=== PATIENT | female | born 1945 | race Caucasian/White ===

== ENCOUNTER 2016-09-12 12:40 | Observation (INO) | payer MEDICARE ==
[2016-09-12] VITALS (7 sets, daily range): BP systolic 147–183; BP diastolic 78–96; PULSE 68–84; RESP 13–20; O2SAT 95–100
[~2016-09-12] VITALS: Ht 149.9 cm; Wt 54.4 kg
[~2016-09-12 12:40] MED LIST: ACET-171 PO; AMIT10TA6 PO; ASPI-628 PO; BENEDRYL PO; CALC300T4 PO; CALC625T15 PO; CHOL2000 PO; COLE1TAB2 PO; ESTR0.5T PO; GABA600T2 PO; GEMF600T3 PO; HYDR-4003 PO; IMMODIUM A-D PO; LEVO100T6 PO; LORA10TA7 PO; MAGN250T29 PO; MULT-1073 PO; NAPR220C11 PO; OMEG1CAP5 PO; OMEP20CA11 PO; PSYL0.5211 PO; TRAZ-115 PO
[2016-09-12] MEDS ORDERED: 0.9% Sodium Chloride 1,000 ML IV ONE (13:00)
--- NOTE | 2016-09-12 13:19 | DRSVH ---
PROCEDURE: CT BRAIN (TPA) ([id number]) INDICATIONS: Stroke TECHNIQUE: Noncontrast 4.5 mm thick angled axial sections acquired from the foramen magnum to the vertex, with c oronal reformats. COMPARISON: None. FINDINGS: Image quality: Excellent. CSF spaces: Basal cisterns are patent. No extra-axial fluid collections. Ventricles are normal in size and shape. Brain: No midline shift. No intracranial masses or hemorrhage. Birch-white matter interface is norm al. Skull and face: Calvarium and visualized facial bones are intact, without suspicious lesions. Sinuses: Visualized sinuses and mastoids are clear. IMPRESSION: Mild microvascular atherosclerotic change, no contraindication to TPA administration is f ound. Findings called immediately to the ordering health care provider at 13:14 in the afternoon of 09/12/16 . This study fulfills neurological imaging criteria for inclusion or exclusion of acute stroke therapie s based on available published neurological imaging guidelines. Dictated by: Adams Maxwell M.D. on 09/12/2016 at 13:16 Approved by: Adams Maxwell M.D. on 09/12/2016 at 13:17
--- NOTE | 2016-09-12 13:30 | ED.REPORT ---
HPI-Neurologic Deficit Date of Service September 12, 2016 ED Provider: Matty Lisa DO Patient is a 71 year old female with a history of hypertension and hypothyroidism who presents to the ED complaining of left facial neck numbness that radiates into the left side of her neck and shoulder. The patient reports that she has had intermittent tingling of her neck and face for the past 4 days and felt normal this morning before 1000. She called [facility] to schedule an appointment for this and began developing numbness in her face, neck and arm around 1015 and the nurse advised her to come to the ED. Once the patient arrived to the ED, she was triaged and had normal speech and walk. Around 1227 the nurse noticed the patient was unbalanced, was having difficulty walking and her speech was slurred. The patient also complained of a headache during this time. Upon examination at 1229 the patient reported that the numbness was improving and she no longer had slurred speech per her . Nursing Notes Stated Complaint: LEFT SIDE FACIAL NUMBNESS Chief Complaint: Neuro Symptoms/ Deficits Nursing Notes Reviewed: Yes Allergies: Coded Allergies: Aminoglycosides (Verified Allergy, Severe, Skin Rash, 09/12/16) Fenoprofen Calcium (Verified Allergy, Severe, Skin Rash, 09/12/16) Penicillins (Verified Allergy, Severe, Skin Rash, 09/12/16) RECEIVED CEFAZOLIN 2010 Pentazocine Lactate (Verified Allergy, Severe, SKIN RASH, 09/12/16) Sulfa (Sulfonamide Antibiotics) (Verified Allergy, Severe, SKIN RASH, 09/12) fenoprofen (Verified Allergy, Severe, Skin Rash, 09/12/16) hydromorphone (Verified Allergy, Severe, hallucinations, 09/12/16) sees crawling worm-like things all over [place] & bed & 3' deep on floors latex (Verified Allergy, Severe, RASH, 09/12/16) thimerosal (Verified Allergy, Severe, RASH, 09/12/16) neomycin (Verified Allergy, Unknown, UNKNOWN, 09/12/16) pramipexole (Unverified Adverse Reaction, Severe, ITCHING, 09/12/16) ropinirole (Unverified Adverse Reaction, Severe, ITCHING, 09/12/16) Uncoded Allergies: Nickel Sulfate (Allergy, Severe, Skin Rash, 05/22/12) Scheduled ([Benedryl]) 25 MG PO BID Amitriptyline (Amitriptyline) 10 Mg Tablet 10 MG PO HS Aspirin (Aspir 81) 81 Mg Tablet.dr 81 MG PO DAILY Calcium Polycarbophil (Fiber) 625 Mg Tablet 625 MG PO DAILY Cholecalciferol (Vitamin D3) (Vitamin D) 2,000 Unit Capsule 2,000 UNIT PO DAILY Colestipol (Colestipol) 1 Gm Tablet 2-3 GM PO DAILY Estradiol (Estradiol) 0.5 Mg Tablet 0.125 MG PO DAILY Gabapentin (Gabapentin) 600 Mg Tablet 600 MG PO TID TAKES 600MG IN AM; 900MG @ 1700 & 900MG @ 2300 Gemfibrozil (Gemfibrozil) 600 Mg Tablet 600 MG PO BID Levothyroxine (Levothyroxine) 100 Mcg Tablet 100 MCG PO DAILY Loratadine (Loratadine) 10 Mg Tablet 10 MG PO DAILY Magnesium Oxide (Magnesium) 250 Mg Tablet 250 MG PO DAILY Multivits-Min/FA/Lycopene/Lut (Centrum Silver Tablet) 1 Each Tablet 1 EACH PO DAILY Lapel-3 Fatty Acids/Fish Oil (Fish Oil 1,000 mg Capsule) 1 Each Capsule 1 EACH PO DAILY Omeprazole (Omeprazole) 20 Mg Capsule.dr 20 MG PO DAILY Psyllium Husk (Metamucil) 0.52 Gm Capsule 0.52 GM PO DAILY Trazodone (Trazodone) 50 Mg Tablet 25-100 MG PO HS Scheduled PRN ([Immodium A-D]) 2 TAB PO PRN PRN PRN For Diarrhea or Loose Stool Acetaminophen (Acetaminophen) 500 Mg Tablet 1,000 MG PO Q6H PRN PRN PRN Calcium Carbonate (Tums) 300 Mg Tab.chew 300 MG PO PRN PRN PRN For Dyspepsia or Heartburn Hydrocodone-Acetaminophen 5-325 mg (Hydrocodone-Acetaminophen 5-325 mg) 1 Each Tablet 1 EACH PO HS PRN PRN RLS Naproxen Sodium (Aleve) 220 Mg Capsule 220 MG PO Q12H PRN PRN PRN General Time Seen by Provider: 12:29 Chief Complaint Numbness arm... (Left) Hx Obtained From: Patient Arrived By: Walk-in Sudden in Onset?: Yes Onset Occurred: 1 - 15 minutes ago Progression Since Onset: Rapidly improving Location: : Arm left: Neck Associated with: Reports: Altered sensation Recent Healthcare: No recent hospitalization, Recent doctor visit Similar Sx Previous: Yes Risk Factors NIH Stroke Scale Level of Consciousness: Alert and responsive (0) Ask Month & Age: Both questions right (0) Open/Close Eyes/Hand Senior Market Intelligence Consultant: Performs both tasks (0) Horizontal EO Movements: None (0) Visual Lo: No visual loss (0) Facial Palsy: Normal symmetry (0) Right Arm Motor Drift (10s): No drift 10 sec (0) Left Arm Motor Drift (10s): No drift 10 sec (0) Right Leg Motor Drift (5s): No drift 5 sec (0) Left Leg Motor Drift (5s): No drift 5 sec (0) Limb Ataxia FNF/Heel-Long: No ataxia (0) Sensation (Arms/Legs/Face): Pinprick less sharp (1) Language Aphasia: No aphasia, normal (0) Dysarthria: No dysarthria, normal (0) Extinction/Inattention: No exctinct/inattent (0) NIHSS Score: 1 Time NIHSS Performed: 13:28 Date NIHSS Performed: September 12, 2016 Past Medical History Past Medical History hypothyroidism Reports: Hypertension Smoking History Former Smoker Social History Other Social History: Good social support, Lives alone, Local resident Ambulatory Status Independent Review of Systems Respiratory: Denies: Non-productive cough, Shortness of breath Neurologic: Reports: Focal weakness, Headache, Numbness, Problem walking, Slurred speech Complete sys rev & neg: except as marked. Physical Exam Initial Vital Signs Vital Signs (First) Date Time Temp Pulse Resp B/P Pulse Ox O2 Delivery O2 Flow Rate FiO2 09/12/16 12:43 35.7 72 18 96 Room Air 09/12/16 14:25 151/93 Initial VS: Reviewed General/Constitutional: Awake, Alert Head / Eyes: Atraumatic, Normocephalic, PERRL, EOMI Respiratory / Chest: Atraumatic, Breath sounds NL, Breath sounds = bilat, No respiratory distress Cardiovascular: Heart rate NL, Regular rhythm, Heart sounds NL Neurologic: Oriented X3, Speech NL, No motor deficits, No sensory deficits parathesia of the left arm and face Upper Extremity / MS: Atraumatic, Full range of motion Lower Extremity / Pelvis / MS: Atraumatic, Full range of motion Skin: Atraumatic, Color NL, No rash, Warm, Dry Psychiatric: Affect NL, Mood NL Interpretation & Diagnostics Lab Results Interpretation Result Diagram: 09/12/16 1325 09/12/16 1325 Test 09/12/16 13:25 09/12/16 14:58 White Blood Count 8.3th/mm3 (3.8-10.1) Red Blood Count 4.80mil/mm3 (3.90-5.20) Hemoglobin 14.8g/dL (12.0-15.6) Hematocrit 43.0% (35.0-46.0) Mean Corpuscular Volume 89.6fL (81-100) Mean Corpuscular Hemoglobin 30.8pg (27.0-35.0) Mean Corpuscular Hemoglobin Concent 34.4% (32.0-37.0) Red Cell Distribution Width 12.5% (12.3-15.4) Platelet Count 328bil/L (150-400) Neutrophils (%) (Auto) 48.0% (40-74) Lymphocytes (%) (Auto) 25.1% (14-46) Monocytes (%) (Auto) 9.8% (4-12) Eosinophils (%) (Auto) 15.9% (0-5) Basophils (%) (Auto) 1.1% (0-3) Prothrombin Time 10.2sec (8.1-12.5) Prothromb Time International Ratio 0.95ratio Activated Partial Thromboplast Time 28.2sec (22.8-33.0) Sodium Level 138mEq/L (134-144) Potassium Level 4.7mEq/L (3.5-5.2) Chloride Level 102mEq/L (97-108) Carbon Dioxide Level 20mmol/L (18-29) Blood Urea Nitrogen 16mg/dL (8-27) Creatinine 0.70mg/dL (0.57-1.00) Estimat Glomerular Filtration Rate 118mL/min (>59) Glucose Level 101mg/dL (60-99) Calcium Level 10.5mg/dL (8.5-10.1) Total Bilirubin 0.4mg/dL (0.0-1.2) Aspartate Amino Transf (AST/SGOT) 25U/L (0-50) Alanine Aminotransferase (ALT/SGPT) 8U/L (0-32) Alkaline Phosphatase 63U/L (25-165) Troponin T < 0.010ug/L (0.0-0.011) Total Protein 7.3g/dL (6.4-8.4) Albumin 4.5g/dL (3.4-5.0) Hold Clark Top Tube Received (Received) Urine Color Straw (YELLOW) Urine Appearance Clear (CLEAR,HAZY) Urine pH 5.0 (5.0-8.0) Urine Specific Orwell 1.005 (1.003-1.035) Urine Protein Negativemg/dL (NEG,TRACE) Urine Glucose (UA) Negativemg/dL (NEGATIVE) Urine Ketones Negativemg/dL (NEGATIVE) Urine Occult Blood Negative (NEGATIVE) Urine Nitrite Negative (NEGATIVE) Urine Bilirubin Negative (NEGATIVE) Urine Urobilinogen Normalmg/dL (NORMAL) Urine Leukocyte Esterase Negative (NEGATIVE) Urine RBC 0-2/hpf (0-2) Urine WBC 0-5/hpf (0-5) Urine Epithelial Cells Few/hpf (NONE-MOD) Urine Crystals None seen (NONE SEEN) Urine Bacteria Few/hpf (NONE-FEW) Urine Hyaline Casts None/lpf (NONE) Urine Granular Casts None seen (NONE SEEN) Urine Waxy Casts None seen (NONE SEEN) Urine Red Blood Cell Casts None seen (NONE SEEN) Urine White Blood Cell Casts None seen (NONE SEEN) Urine Mucus None seen (None Seen) Urine Trichomonas None seen (NONE SEEN) Urine Yeast None (NONE SEEN) Urinalysis Comment None Urine Culture Reflexed Not indicated ECG Interpretation Time: 12:29 Interpreted by: ED physician Normal ECG Interpretation: Normal rate (72), Normal sinus rhythm X-Ray Chest Interpretation Chest Xray Interpretation: IMPRESSION: 1. No acute cardiopulmonary disease. Dictated by: Román Evans M.D. on 09/12/2016 at 13:40 Approved by: Román Evans M.D. on 09/12/2016 at 13:41 View: Portable, 1 view Interpretation / Wet Read by: Interpret - Radiologist CT Head Interpretation IMPRESSION: Mild microvascular atherosclerotic change, no contraindication to TPA administration is found. Findings called immediately to the ordering health care provider at 13:14 in the afternoon of 09/12/16. This study fulfills neurological imaging criteria for inclusion or exclusion of acute stroke therapies based on available published neurological imaging guidelines. Dictated by: Adams Maxwell M.D. on 09/12/2016 at 13:16 Approved by: Adams Maxwell M.D. on 09/12/2016 at 13:17 Interpretation / Wet Read by: Interpret - Radiologist Re-Eval/Medical Decision Med Decision/Clinical Course Patient was called as a code stroke after her symptoms progressed to difficulty walking, slurred speech, facial droop this occurred after the patient had been triage and was being walked back to a medical room. She was immediately brought to the major medical room after the code stroke was called at bedside assessment was performed, last known normal was assessed. The patient was sent emergently for noncontrast head CT, EKG and laboratory studies were obtained. There was no obvious contraindication to TPA however after return from CT her NIH stroke scale is 1. The case was discussed with pseudo-stroke neurology who recommended not giving TPA however did recommend a CT and she will head and neck. There is no high-grade occlusion on the angiography. Ultimately the patient will be admitted for third further stroke evaluation. Re-Evaluation/Progress : Time of Eval: 14:25 Re-Evaluation/Progress Note: Discussed results and plan for admit. The patient understands and agrees to the plan for admit. All questions were addressed. Consultation : Call Returned at: 13:25 Auto Brake Technician: Agrees with eval, Agrees with plan Note: Consult with Dr. Don, from [facility], who does not recommends TPA at this time but recommends she get a CTA. Counseled Regarding: Diagnosis, Lab results, Need for admission Discharge & Departure Impression: Primary Impression: Stroke CVA mechanism: unspecified Qualified Code: I63.9 - Cerebral infarction, unspecified Disposition: ADMITTED TO HOSPITAL Discharge Condition All VS Reviewed: Yes Condition: Stable Referrals: Zach Meyer MD (PCP) Crit Care Except Billable Proc Time Spent: 30-74 minutes Services Performed: Patient management by me, Time spent at bedside, Reviewing test results, Reviewing imaging, Discussing patient care, Documentation in record, Time with fam/surrogate Critical Care Notes: See MDM Zoey Attestation Portions of this note were transcribed by Shreya Sullivan. I, Dr. Jennifer Pelletier personally performed the history, physical exam and medical decision-making; I reviewed and confirmed the accuracy of the information in the transcribed note. Signed by: Zoey Mena, 09/12/16 and 1500 copies to: Zach Meyer MD, Timothy S DO September 12, 2016 13:30 Farideh Sullivan September 12, 2016 13:39
[2016-09-12 13:34] LABS: BASOPHILS % (AUTO) 1.1 % (0-3); EOSINOPHILS % (AUTO) 15.9 % (0-5); MONOCYTES % (AUTO) 9.8 % (4-12); Mean Corpuscular Hemoglobin 30.8 pg (27.0-35.0); Mean Corpuscular Volume 89.6 fL (81-100); Platelet Count 328 bil/L (150-400)
--- NOTE | 2016-09-12 13:43 | DRSVH ---
PROCEDURE: X-RAY CHEST ONE VIEW, PORTABLE ([id number]) INDICATIONS: left sided numbness TECHNIQUE: One view of the chest was acquired. COMPARISON: [facility], , CHEST 1VW (PORTABLE), 05/31/2012, 15:20. FINDINGS: Surgical changes and devices: There are postsurgical changes partially visualized in the lower cervic al and lumbar spine. Lungs and pleura: No pleural effusions or pneumothorax. Lungs are clear. Mediastinum: Mediastinal contours appear normal. Heart size is normal. Bones and chest wall: No suspicious bony lesions. Overlying soft tissues appear unremarkable. IMPRESSION: 1. No acute cardiopulmonary disease. Dictated by: Román Evans M.D. on 09/12/2016 at 13:40 Approved by: Román Evans M.D. on 09/12/2016 at 13:41
[2016-09-12 13:58] LABS: INR 0.95 ratio
[2016-09-12 14:10] LABS: TROPONIN T < 0.010 ug/L (0.0-0.011)
--- NOTE | 2016-09-12 14:22 | NUR ---
Evaluation completed. Please go to "Notes" then click on "Assessments and Notes" (bottom left corner of screen). Then select appropriate discipline tab on top of screen.
[2016-09-12 15:34] LABS: APPEARANCE,URINE CLEAR (CLEAR,HAZY); COLOR,URINE STRAW (YELLOW); OCCULT BLOOD,URINE NEGATIVE (NEGATIVE); UROBILINOGEN,URINE NORMAL (NORMAL)
--- NOTE | 2016-09-12 15:47 | DRSVH ---
PROCEDURE: CT ANGIO BRAIN NECK TPA INDICATIONS: STAT READ - CALL ED PROVIDER W/RESULTS TECHNIQUE: Pre-contrast 4.5 mm thick sections acquired from the foramen magnum to the vertex. After the adminis tration of intravenous contrast, 1 mm thick sections acquired from the aortic arch through the [place]. Post-contrast 4.5 mm thick sections then re-acquired from the foramen magnum to the vert ex. 3-dimensional mhwbczc-iobpsotyz-qgiyidtefg (MIP) and/or volume rendering reformats were acquired of the central intracranial vasculature and neck separately. For radiation dose reduction, the foll owing was used: automated exposure control, adjustment of mA and/or kV according to patient size. COMPARISON: [facility], CT, BRAIN (TPA), 09/12/2016, 13:07. FINDINGS: Image quality: Excellent. BRAIN: CSF spaces: Ventricles are normal in size and shape. Basal cisterns are patent. No extra-axial flu id collections. Brain: No midline shift. No intracranial bleeds or masses. Birch-white matter interface appears int act. Skull and face: Calvarium and facial bones appear intact, without suspicious lesions. Orbits appear normal. Sinuses: Sinuses and mastoids are clear. HEAD CT ANGIOGRAPHY: Anterior circulation: Intracranial internal carotid arteries are normal in flow. Atherosclerotic hellen cifications noted in the cavernous and supraclinoid segments of the internal carotid arteries bilater ally. Atherosclerotic disease causes moderate stenosis of the supraclinoid segment of the right inter nal carotid artery, mild stenosis of the cavernous segment of the right internal carotid artery and m ild stenosis of the cavernous segment of the left internal carotid artery.. The flow within the paire d anterior cerebral arteries is normal and symmetric. The flow within the middle cerebral arteries i s normal and symmetric. The anterior communicating artery is seen. No aneurysms are seen. Posterior circulation: Visualized portions of the vertebral arteries demonstrate normal caliber, and join to form a normal appearing basilar artery. Flow within the posterior cerebral arteries is norm al and symmetric. No aneurysms are seen. NECK CT ANGIOGRAPHY: Carotid system: The great vessels demonstrate a conventional anatomy as they arise from the aortic a [facility]. Atherosclerotic calcifications noted in the aortic arch and the origins of the great vessels. T he origins of the common carotid arteries appear patent. The common carotid arteries demonstrate nor mal caliber and courses. Atherosclerotic calcifications noted in the origins of the internal carotid arteries bilaterally. Atherosclerotic disease causes approximately 60-70% stenosis of the origin of t he right internal carotid artery. A dystrophic calcification causing approximately 70-80% stenosis of the origin of the left internal carotid artery. Posterior circulation: The origins of the vertebral arteries both appear widely patent. The more [place] perior extracranial portions of both vertebral arteries also demonstrate normal courses and calibers. They join to form a normal appearing basilar artery. Soft tissues: Visualized neck soft tissues demonstrate no suspicious abnormalities. Bones: Spine degenerative disc disease and facet arthropathy. Postsurgical changes compatible with s evere C4-C7 ACDF noted. No suspicious bony lesions. Visualized cervical spine appears normally align ed. IMPRESSION: 1. No evidence of large vessel occlusion. 2. Moderate stenosis involving the supraclinoid segment of the intracranial right internal carotid ar papa. Mild stenosis involving the cavernous segments of the intracranial internal carotid arteries bi laterally. 3. 60-70% stenosis of the origin of the right internal carotid artery. 4. 70-80% stenosis of the origin the left internal carotid artery. 5. Vertebral arteries appear fully patent. 6. Postsurgical changes compatible C4-C7 ACDF. 7. Findings telephoned to Dr. Matty Lisa on 09/12/2016 at 1541 hrs. Dictated by: Paulette Melendez MD, PhD on 09/12/2016 at 15:31 Approved by: Paulette Melendez MD, PhD on 09/12/2016 at 15:46
[2016-09-12] MEDS ORDERED: Alum-Mag Hydrox-Simeth 30 mL Suspension PO PRN ×2 (15:55→17:10)
[2016-09-12] MEDS ORDERED: Ondansetron 2 mg/mL 2 mL Inj IVPUSH PRN ×2 (15:55→17:10)
[2016-09-12] MEDS ORDERED: LEVO88TA4 PO (16:38)
[2016-09-12] MEDS ORDERED: DORZ10DR20 BOTH_EYES (16:38)
[2016-09-12] MEDS ORDERED: LATA2.5D6 BOTH_EYES (16:38)
[2016-09-12] MEDS ORDERED: Polyethylene Glycol (PEG) 17 Gm Powder PO PRN (17:10)
--- NOTE | 2016-09-12 17:50 | PCM.HPMED ---
Subjective Date of Service September 12, 2016 Primary Provider: Admitting Physician: Guy Hawk Primary Care Physician: Zach Meyer MD Attending Physician: Guy Hawk Chief Complaint: left facial numbness History of Present Illness: 71 year old female with history of hypercholesterolemia and distant history of smoking presents with about 4-5 days of intermittent tingling on the left side of her neck and radiating down her left shoulder. She called her PCP's office today and as she was talking to the nurse on the phone she felt numbness on the lower left side of her face and around her lip and tongue. She was instructed to come to the ED. In the ED while going to the bathroom the nursing felt that patient's speech might be slurred although her says that her speech seems at baseline right now. She reports that the numbness and tingling in her face and neck seems almost resolved now but still feels some numbness of her tongue. She otherwise denies any other new neurologic symptoms and specifically denies any focal weakness. Review of Systems: Constitutional: Negative, except as otherwise mentioned in the history above. Ophthalmologic: Negative, except as otherwise mentioned in the history above. Cardiovascular: Negative, except as otherwise mentioned in the history above. Respiratory: Negative, except as otherwise mentioned in the history above. Gastrointestinal: Negative, except as otherwise mentioned in the history above. Genitourinary: Negative, except as otherwise mentioned in the history above. Musculoskeletal: Negative, except as otherwise mentioned in the history above. Neurological: Negative, except as otherwise mentioned in the history above. Psychiatric: Negative, except as otherwise mentioned in the history above. Hematologic/Lymphatic: Negative, except as otherwise mentioned in the history above. Allergic/Immunologic: Negative, except as otherwise mentioned in the history above. Allergies Coded Allergies: Aminoglycosides (Verified Allergy, Severe, Skin Rash, 09/12/16) Fenoprofen Calcium (Verified Allergy, Severe, Skin Rash, 09/12/16) Penicillins (Verified Allergy, Severe, Skin Rash, 09/12/16) RECEIVED CEFAZOLIN X2 2010 Pentazocine Lactate (Verified Allergy, Severe, SKIN RASH, 09/12/16) Sulfa (Sulfonamide Antibiotics) (Verified Allergy, Severe, SKIN RASH, 09/12) fenoprofen (Verified Allergy, Severe, Skin Rash, 09/12/16) hydromorphone (Verified Allergy, Severe, hallucinations, 09/12/16) sees crawling worm-like things all over [place] & bed & 3' deep on floors latex (Verified Allergy, Severe, RASH, 09/12/16) thimerosal (Verified Allergy, Severe, RASH, 09/12/16) neomycin (Verified Allergy, Unknown, UNKNOWN, 09/12/16) pramipexole (Unverified Adverse Reaction, Severe, ITCHING, 09/12/16) ropinirole (Unverified Adverse Reaction, Severe, ITCHING, 09/12/16) Uncoded Allergies: Nickel Sulfate (Allergy, Severe, Skin Rash, 05/22/12) Home Medications Loratadine 10 Mg Tablet 10 Mg PO DAILY 30 Days Cardiovascular Drugs Colestipol HCl 1 Gm Tablet 2-3 Gm PO DAILY Gemfibrozil 600 Mg Tablet 600 Mg PO BID Dora-3 Fatty Acids/Fish Oil 1 Each Capsule (Fish Oil 1,000 mg Capsule) 1 Each PO DAILY Acetaminophen 500 Mg Tablet (Acetaminophen Extra Strength) 1,000 Mg PO Q6H PRN Amitriptyline 10 Mg Tablet 10 Mg PO HS Aspirin 81 Mg Tablet.Dr 81 Mg PO DAILY Gabapentin 600 Mg Tablet 600 Mg PO TID 30 Days TAKES 600MG IN AM; 900MG @ 1700 & 900MG @ 2300 Naproxen Sodium 220 Mg Capsule 220 Mg PO Q12H PRN Trazodone 50 Mg Tablet 25-100 Mg PO HS 30 Days Dorzolamide HCl/Timolol Maleat 10 Ml Drops 1 Gtt OP BID Latanoprost 2.5 Ml Drops 1 Gtt OP HS Hydrocodone-Acetaminophen 5-325 mg 1 Each PO HS PRN Exam Vital Signs & I/O Vital Sign- Last 8 Hours Date Time Temp Pulse Resp B/P Pulse Ox O2 Delivery O2 Flow Rate FiO2 09/12/16 15:33 79 14 151/80 100 Room Air 09/12/16 14:25 68 13 151/93 100 Room Air 09/12/16 12:43 35.7 72 18 96 Room Air Lab & Micro Results Laboratory Tests Test 09/12/16 13:25 09/12/16 14:58 White Blood Count 8.3th/mm3 (3.8-10.1) Red Blood Count 4.80mil/mm3 (3.90-5.20) Hemoglobin 14.8g/dL (12.0-15.6) Hematocrit 43.0% (35.0-46.0) Mean Corpuscular Volume 89.6fL (81-100) Mean Corpuscular Hemoglobin 30.8pg (27.0-35.0) Mean Corpuscular Hemoglobin Concent 34.4% (32.0-37.0) Red Cell Distribution Width 12.5% (12.3-15.4) Platelet Count 328bil/L (150-400) Neutrophils (%) (Auto) 48.0% (40-74) Lymphocytes (%) (Auto) 25.1% (14-46) Monocytes (%) (Auto) 9.8% (4-12) Eosinophils (%) (Auto) 15.9% (0-5) Basophils (%) (Auto) 1.1% (0-3) Prothrombin Time 10.2sec (8.1-12.5) Prothromb Time International Ratio 0.95ratio Activated Partial Thromboplast Time 28.2sec (22.8-33.0) Sodium Level 138mEq/L (134-144) Potassium Level 4.7mEq/L (3.5-5.2) Chloride Level 102mEq/L (97-108) Carbon Dioxide Level 20mmol/L (18-29) Blood Urea Nitrogen 16mg/dL (8-27) Creatinine 0.70mg/dL (0.57-1.00) Estimat Glomerular Filtration Rate 118mL/min (>59) Glucose Level 101mg/dL (60-99) Calcium Level 10.5mg/dL (8.5-10.1) Total Bilirubin 0.4mg/dL (0.0-1.2) Aspartate Amino Transf (AST/SGOT) 25U/L (0-50) Alanine Aminotransferase (ALT/SGPT) 8U/L (0-32) Alkaline Phosphatase 63U/L (25-165) Troponin T < 0.010ug/L (0.0-0.011) Total Protein 7.3g/dL (6.4-8.4) Albumin 4.5g/dL (3.4-5.0) Hold Clark Top Tube Received (Received) Urine Color Straw (YELLOW) Urine Appearance Clear (CLEAR,HAZY) Urine pH 5.0 (5.0-8.0) Urine Specific [place] 1.005 (1.003-1.035) Urine Protein Negativemg/dL (NEG,TRACE) Urine Glucose (UA) Negativemg/dL (NEGATIVE) Urine Ketones Negativemg/dL (NEGATIVE) Urine Occult Blood Negative (NEGATIVE) Urine Nitrite Negative (NEGATIVE) Urine Bilirubin Negative (NEGATIVE) Urine Urobilinogen Normalmg/dL (NORMAL) Urine Leukocyte Esterase Negative (NEGATIVE) Urine RBC 0-2/hpf (0-2) Urine WBC 0-5/hpf (0-5) Urine Epithelial Cells Few/hpf (NONE-MOD) Urine Crystals None seen (NONE SEEN) Urine Bacteria Few/hpf (NONE-FEW) Urine Hyaline Casts None/lpf (NONE) Urine Granular Casts None seen (NONE SEEN) Urine Waxy Casts None seen (NONE SEEN) Urine Red Blood Cell Casts None seen (NONE SEEN) Urine White Blood Cell Casts None seen (NONE SEEN) Urine Mucus None seen (None Seen) Urine Trichomonas None seen (NONE SEEN) Urine Yeast None (NONE SEEN) Urinalysis Comment None Urine Culture Reflexed Not indicated Result Diagram: 09/12/16 1325 09/12/16 1325 PMH 1. Hypothyroidism 2. Hypercholesterolemia 3. Arthritis 4. GERD Surgical History post cataract surgery Family History Grandmother with breast cancer Social History Hx Alcohol Use: Yes (MOSTLY SOCIAL/BEER) Hx Substance Use: No Hx Tobacco Use: Yes Smoking Status: Former Smoker (quit about 25 years ago) Exam Vital Signs Vital Sign - Last Date Time Temp Pulse Resp B/P Pulse Ox O2 Delivery O2 Flow Rate FiO2 09/12/16 15:33 79 14 151/80 100 Room Air 09/12/16 12:43 35.7 General: Alert, Oriented X3, Cooperative, No Acute Distress Head: Normal Eyes: PERRLA, EOMI, Scleral Anicteric Nose: Mucous Membr Moist/[place] Mouth: Mucous Membr Moist/[place] Neck: Supple Chest & Lungs: Chest Wall Normal, Clear to auscultation & percussion Cardiovascular: Regular Rate/Rhythm Pulses: NL carotid, radial, femoral, DP, PT Abdomen: Non-tender, Non-distended, Normoactive bowel tones, Soft Extremities: No cyanosis/clubbing/edma bilat Neurological: Grossly Neurologically Intact, Normal Speech, Strength Normal 4/ 4 ext (UE and LE bilat), Other (sensation is somewhat decreased on the left face (v2 and v3 distribution) compared to right. Sensation is also decreased on the left arm compared to right.) Lymphatic: Other Lymph Nodes (no significant lymphadenopathy) Lab and Diagnostics Result Diagram: 09/12/16 1325 09/12/16 1325 X-Rays, CTs and MRIs Date of Service: 09/12/16 1300 PROCEDURE: X-RAY CHEST ONE VIEW, PORTABLE ([id number]) IMPRESSION: 1. No acute cardiopulmonary disease. Dictated by: Román Evans M.D. on 09/12/2016 at 13:40 Approved by: Román Evans M.D. on 09/12/2016 at 13:41 Date of Service: 09/12/16 1300 PROCEDURE: CT BRAIN (TPA) ([id number]) IMPRESSION: Mild microvascular atherosclerotic change, no contraindication to TPA administration is found. Findings called immediately to the ordering health care provider at 13:14 in the afternoon of 09/12/16. This study fulfills neurological imaging criteria for inclusion or exclusion of acute stroke therapies based on available published neurological imaging guidelines. Dictated by: Adams Maxwell M.D. on 09/12/2016 at 13:16 Approved by: Adams Maxwell M.D. on 09/12/2016 at 13:17 Date of Service: 09/12/16 1329 PROCEDURE: CT ANGIO BRAIN NECK TPA IMPRESSION: 1. No evidence of large vessel occlusion. 2. Moderate stenosis involving the supraclinoid segment of the intracranial right internal carotid artery. Mild stenosis involving the cavernous segments of the intracranial internal carotid arteries bilaterally. 3. 60-70% stenosis of the origin of the right internal carotid artery. 4. 70-80% stenosis of the origin the left internal carotid artery. 5. Vertebral arteries appear fully patent. 6. Postsurgical changes compatible C4-C7 ACDF. 7. Findings telephoned to Dr. Matty Lisa on 09/12/2016 at 1541 hrs. Dictated by: Paulette Melendez MD, PhD on 09/12/2016 at 15:31 Approved by: Paulette Melendez MD, PhD on 09/12/2016 at 15:46 12-lead ECG NSR at 70 bpm Assessment & Plan 71 year old female with history of hypercholesterolemia and distant history of smoking presents with about 4-5 days of intermittent tingling on the left side of her neck as well as an acute and transient episode of left facial numbness. # Acute and intermittent episodes of numbness and tingling concerning for possible TIA vs CVA. Present on admission. - Check MRI brain - ASA daily - Start Lipitor 20 hs and check fasting lipid panel - PT/OT/Speech consult - Permissive hypertension - HgA1C check # Significant carotid artery stenosis bilaterally, present on admission - Start Lipitor 20 hs and check fasting lipid panel as noted above - Will review with neurology consult # Chronic hypothyroidism - Continue with home dose Levothyroxine - Check TSH in am # Arthritis, chronic. Stable. - Continue with supportive care - Continue with home pain meds - IV morphine prn for severe pain # GERD, chronic. stable - Continue with PPI Expected length of hospital stay is less than 2 midnights GI Prophylaxis: Proton Pump Inhibitor VTE Prophylaxis: Sub-Q Heparin (Unfractionated) Resuscitation Status: CPR: Attempt Resuscitation (discussed and verified with patient) Time spent 65 min Guy Hawk September 12, 2016 17:50
[2016-09-12] MEDS ORDERED: HYDROcodone-APAP 5-325 mg Tablet PO PRN (18:00)
--- NOTE | 2016-09-12 18:01 | NUR ---
Admission Patient admitted to the floor from ED at 1651. Admission questions accomplished by ENA Bond. and med list accomplished by admit nurse. Vitals - t-36.8, bp-147/78, p-84, rr-20, 02-100RA. Advised patient to press call light if she wanted to get out of bed for safety. Oriented patient to the room, placed bed in lowest position and call light within reach.
[2016-09-12] MEDS ORDERED: Labetalol 5 mg/mL 20 mL Inj IV PRN (18:26)
--- NOTE | 2016-09-12 19:18 | NUR ---
Admission part 2. Report received from ENA Davey in ED. Assessments and nurse swallow as ordered completed. Pt able to tolerate thin/water. But coughed after applesauce. Diet placed by Speech Therapy. No Neuro deficits noted on checks. Pt strong and steady on feet - oriented to call light and safety precautions.
[2016-09-12] MEDS: Heparin 5,000 Unit/mL Inj SUBQ SCH (20:06)
[2016-09-12] MEDS: Timolol-Dorzolamide 10 mL Ophthalmic Solution BOTH_EYES SCH (20:10)
--- NOTE | 2016-09-12 20:51 | DRSVH ---
PROCEDURE: MRI BRAIN WITH AND WITHOUT CONTRAST ([id number]) INDICATIONS: left facial and neck numbness TECHNIQUE: Noncontrast axial T1 spin echo, axial T2 fast spin echo, sagittal and axial FLAIR, coronal T2 fast sp in echo, axial gradient echo, axial diffusion and ADC through the brain. After the administration of contrast, axial and coronal 3D VIBE or T1 spin echo with fat saturation through the brain. COMPARISON: None. FINDINGS: Image quality: Excellent. CSF Spaces: Basal cisterns are patent. No extra-axial fluid collections. Ventricles are normal in size and shape. Brain: No midline shift. No intracranial bleeds or masses. No abnormal intracranial enhancement. The brainstem appears normal. Diffusion-weighted images demonstrate no acute ischemic insults. No ar eas of encephalomalacia. No susceptibility weighted abnormalities are identified in the brain parenc hyma. Normal intravascular flow voids are present. Skull and face: Calvarial marrow is normal in signal. Orbits appear normal. Sinuses: Sinuses and mastoids appear clear. IMPRESSION: 1. No intracranial disease process. 2. No abnormal tracheal mass. 3. No abnormal intracranial postcontrast enhancement. Dictated by: Paulette Melendez MD, PhD on 09/12/2016 at 20:43 Approved by: Paulette Melendez MD, PhD on 09/12/2016 at 20:49
--- NOTE | 2016-09-12 21:04 | DRSVH ---
PROCEDURE: MRI CERVICAL SPINE WITH AND WITHOUT CONTRAST ([id number]) INDICATIONS: left facial and neck numbness TECHNIQUE: Noncontrast sagittal T1 spin echo and T2 fast spin echo, sagittal STIR, foraminal oblique sagittal T2 fast spin echo, axial gradient echo or T2 fast spin echo through the cervical spine. After the admi nistration of contrast, axial and sagittal T1 spin echo with fat saturation through the cervical spin e. COMPARISON: None. FINDINGS: Image quality: Limited by patient motion artifact. Alignment and curvature: Postsurgical changes compatible with C4-C7 ACDF are noted. There is approx imately 3 mm of C2-C3 anterolisthesis. There is approximately 2 mm of C3 on C4 anterolisthesis. Marrow: Susceptibility artifact obscures portions of the C3, C4, C5, C6 and C7 vertebral bodies. Th e visualized marrow is normal in overall signal, without suspicious enhancement. Spinal cord: Visualized spinal cord has normal size and signal. No cerebellar tonsillar herniation. No abnormal intramedullary enhancement. Paraspinous soft tissues: No paravertebral masses or suspicious enhancement. C2-3: Loss of disc signal. Minimal, diffuse disc bulge. Moderate right facet hypertrophy. Mild li gamentum flavum hypertrophy. Moderate narrowing of the central canal secondary to disc disease and l igamentum flavum hypertrophy. Severe left neural foraminal narrowing secondary to disc disease and f acet hypertrophy. C3-4: Loss of disc signal and height. Moderate, diffuse disc bulge and mild ligamentum flavum hyper trophy. Mild left facet hypertrophy. Moderate narrowing of the central canal secondary to disc dise ase and ligamentum flavum hypertrophy. Mild right and severe left neural foraminal narrowing seconda ry to disc disease and left facet hypertrophy. C4-5: Status post discectomy and fusion. No central stenosis. No neural foraminal narrowing. C5-6: Status post discectomy and fusion. No central stenosis. Mild bilateral uncovertebral joint h ypertrophy. Mild bilateral neural foraminal narrowing secondary to uncovertebral joint hypertrophy. C6-7: Status post discectomy and fusion. No central stenosis. The mild right and moderate left unc overtebral joint hypertrophy. Mild left facet hypertrophy. Moderate right and severe left neurofora sandeep narrowing secondary to disc disease, facet hypertrophy and uncovertebral joint hypertrophy. C7-T1: Loss of disc signal. Minimal, diffuse disc bulge. Mild narrowing of central canal secondary to disc disease. Mild left facet hypertrophy. Mild left neuroforaminal narrowing secondary to face t hypertrophy. IMPRESSION: 1. Status post C4-C7 ACDF. 2. Multilevel degenerative disc disease. 3. Multilevel facet hypertrophy and uncovertebral joint hypertrophy. 4. Moderate C2 and C3 and C3-C4 central canal narrowing. Mild C7-T1 central canal narrowing. 5. Severe left C2 and C3 and C3-C4 neuroforaminal narrowing. Mild bilateral C5-C6 neural foraminal narrowing. Moderate right and severe left C6-C7 neuroforaminal narrowing. Mild left C7-T1 neural fo raminal narrowing. 6. Image quality limited by patient motion artifact. Dictated by: Paulette Melendez MD, PhD on 09/12/2016 at 20:53 Approved by: Paulette Melendez MD, PhD on 09/12/2016 at 21:02
[2016-09-12] MEDS ORDERED: LORA5TAB8 PO (21:18)
[2016-09-12] MEDS ORDERED: GABA-502 PO (21:18)
[2016-09-12] MEDS ORDERED: DIPH25CA6 PO (21:18)
[2016-09-12] MEDS ORDERED: ASPI-973 PO (21:19)
[2016-09-12] MEDS ORDERED: LORA10CA PO (21:19)
[2016-09-12] MEDS ORDERED: CHOL10008 PO (21:19)
[2016-09-12] MEDS ORDERED: CALC625T76 PO (21:20)
[2016-09-12] MEDS ORDERED: OMEG-38 PO (21:20)
[2016-09-12] MEDS ORDERED: CALC-964 PO (21:21)
[2016-09-12] MEDS ORDERED: FLUT15.88 NS (21:24)
[2016-09-12] MEDS ORDERED: GINK120C PO (21:24)
[2016-09-12] MEDS ORDERED: UBID100T7 PO (21:24)
[2016-09-12] MEDS ORDERED: LOPE2TAB32 PO (21:24)
[2016-09-12] MEDS ORDERED: CYCL10TA9 PO (21:24)
[2016-09-12] MEDS ORDERED: OXYC-474 PO (21:24)
[2016-09-12] MEDS ORDERED: PRAV20TA2 PO (21:24)
--- NOTE | 2016-09-12 21:31 | NUR ---
Case Management: Explained HOGAN to patient at 2100, all questions answered. Pt verbalized that she is "afraid" to sign the HOGAN. I noted on the HOGAN that patient refused to sign, placing it in the chart, copy given to patient. I sat with her awhile--she is aware that if she has further questions we are here from 7:30 am to 11 pm.
[2016-09-13 00:59] VITALS: BP 100/59; PULSE 69; RESP 18; O2SAT 94
--- NOTE | 2016-09-13 03:44 | NUR ---
PVR x2 = 0ml residual urine.
[2016-09-13 05:51] VITALS: BP 135/78; PULSE 67; RESP 16; O2SAT 94
[2016-09-13 06:07] LABS: Mean Corpuscular Hemoglobin 30.5 pg (27.0-35.0); Mean Corpuscular Volume 89.8 fL (81-100)
[2016-09-13 06:20] LABS: Magnesium 1.7 mg/dL (1.6-2.6)
[2016-09-13] MEDS ORDERED: Pantoprazole 20 mg ER24 Tablet PO SCH (06:30)
[2016-09-13 06:33] LABS: INR 0.98 ratio
--- NOTE | 2016-09-13 07:26 | NUR ---
DIET pt requests a general diet. This RN observed pt swallow water and applesauce without any cough/choke/gag response. pt states that she has a long history of allergies and usually has to clear her throat when she swallows anything.
[2016-09-13] MEDS: Heparin 5,000 Unit/mL Inj SUBQ SCH ×2 (08:10→16:47)
[2016-09-13] MEDS: Timolol-Dorzolamide 10 mL Ophthalmic Solution BOTH_EYES SCH ×2 (08:11→19:00)
[2016-09-13] MEDS ORDERED: ESTRADIOL PO SCH (08:30)
[2016-09-13 09:15] VITALS: PULSE 71
--- NOTE | 2016-09-13 09:22 | NUR ---
Social Work: Initial Assessment Data: Pt is a 71 y/o female admitted for CVA. Pt's PCP is Dr Meyer, pt's insurance is [facility] [place] Medicare. EMR reviewed. Readmit score is 2, low. PHP LAMP DEVELOPER met with pt at bedside, role explained. Pt states that she lives in [place] with her spouse in a single story home where she uses no DME. Pt drives, has no hx of SNF, has hx of HH, no LTC or VA benefits, pt is not a caregiver. Pt has been up and independent. No d/c planning needs anticipated at this time. PHP LAMP DEVELOPER will continue to follow if needs arise. Assessment: Pt who is independent at baseline. Plan: Pt will d/c home via POV with spouse when medically stable. No d/c planning needs anticipated at this time. PHP LAMP DEVELOPER will continue to follow if needs arise. MARIE Loza Addendum: 09/13/16 at 0927 by YEFRI SAWYER Amended: Links added.
[2016-09-13 11:07] VITALS: BP 143/87; PULSE 78; RESP 18; O2SAT 97
--- NOTE | 2016-09-13 11:14 | NUR ---
PT NOTE: Patient states she is up independently and has no PT needs. Declined PT eval.
[2016-09-13 14:30] VITALS: BP 149/82; PULSE 89; RESP 20; O2SAT 96
[2016-09-13 17:49] VITALS: BP 156/90; PULSE 96; RESP 20; O2SAT 97
--- NOTE | 2016-09-13 17:57 | NUR ---
report report called into [facility], no questions at this time. ETA for transport in 1900.
--- NOTE | 2016-09-13 18:14 | PCM.DIMED ---
Discharge Instructions Date of Service September 13, 2016 Dates of Hospitalization September 12, 2016 at 16:15 Discharge Diagnosis Discharge Diagnosis # Acute and intermittent episodes of numbness and tingling concerning for possible TIA. Present on admission. # Significant carotid artery stenosis bilaterally, present on admission # Moderate stenosis involving the supraclinoid segment of the intracranial right internal carotid artery # Severe left C2 and C3 and C3-C4 neuroforaminal narrowing. present on admission # Chronic hypothyroidism # Arthritis, chronic. Stable. # GERD, chronic. stable Guy Hawk September 13, 2016 18:14
--- NOTE | 2016-09-13 18:20 | PCM.DC.MED ---
Discharge Summary Date of Service September 13, 2016 Dates of Hospitalization Date of Hospital Admission September 12, 2016 at 16:15 Date of Discharge: September 13, 2016 Providers: Admitting Physician: Guy Hawk Primary Care Physician: Zach Meyer MD Attending Physician: Guy Hawk Diagnosis at Time of Discharge Diagnosis at Time of Discharge # Acute and intermittent episodes of numbness and tingling concerning for possible TIA. Present on admission. # Significant carotid artery stenosis bilaterally, present on admission # Moderate stenosis involving the supraclinoid segment of the intracranial right internal carotid artery # Severe left C2 and C3 and C3-C4 neuroforaminal narrowing. present on admission # Chronic hypothyroidism # Arthritis, chronic. Stable. # GERD, chronic. stable Procedures XRay, CTs & MRIs Date of Service: 09/12/16 1300 PROCEDURE: X-RAY CHEST ONE VIEW, PORTABLE ([id number]) IMPRESSION: 1. No acute cardiopulmonary disease. Dictated by: Román Evans M.D. on 09/12/2016 at 13:40 Approved by: Román Evans M.D. on 09/12/2016 at 13:41 Date of Service: 09/12/16 1300 PROCEDURE: CT BRAIN (TPA) ([id number]) IMPRESSION: Mild microvascular atherosclerotic change, no contraindication to TPA administration is found. Findings called immediately to the ordering health care provider at 13:14 in the afternoon of 09/12/16. This study fulfills neurological imaging criteria for inclusion or exclusion of acute stroke therapies based on available published neurological imaging guidelines. Dictated by: Adams Maxwell M.D. on 09/12/2016 at 13:16 Approved by: Adams Maxwell M.D. on 09/12/2016 at 13:17 Date of Service: 09/12/16 6619 PROCEDURE: CT ANGIO BRAIN NECK TPA IMPRESSION: 1. No evidence of large vessel occlusion. 2. Moderate stenosis involving the supraclinoid segment of the intracranial right internal carotid artery. Mild stenosis involving the cavernous segments of the intracranial internal carotid arteries bilaterally. 3. 60-70% stenosis of the origin of the right internal carotid artery. 4. 70-80% stenosis of the origin the left internal carotid artery. 5. Vertebral arteries appear fully patent. 6. Postsurgical changes compatible C4-C7 ACDF. 7. Findings telephoned to Dr. Matty Lisa on 09/12/2016 at 1541 hrs. Dictated by: Paulette Melendez MD, PhD on 09/12/2016 at 15:31 Approved by: Paulette Melendez MD, PhD on 09/12/2016 at 15:46 Date of Service: 09/12/161821 PROCEDURE: MRI CERVICAL SPINE WITH AND WITHOUT CONTRAST ([id number]) IMPRESSION: 1. Status post C4-C7 ACDF. 2. Multilevel degenerative disc disease. 3. Multilevel facet hypertrophy and uncovertebral joint hypertrophy. 4. Moderate C2 and C3 and C3-C4 central canal narrowing. Mild C7-T1 central canal narrowing. 5. Severe left C2 and C3 and C3-C4 neuroforaminal narrowing. Mild bilateral C5 -C6 neural foraminal narrowing. Moderate right and severe left C6-C7 neuroforaminal narrowing. Mild left C7-T1 neural foraminal narrowing. 6. Image quality limited by patient motion artifact. Dictated by: Paulette Melednez MD, PhD on 09/12/2016 at 20:53 Approved by: Paulette Melendez MD, PhD on 09/12/2016 at 21:02 Date of Service: 09/12/161821 PROCEDURE: MRI BRAIN WITH AND WITHOUT CONTRAST ([id number]) IMPRESSION: 1. No intracranial disease process. 2. No abnormal tracheal mass. 3. No abnormal intracranial postcontrast enhancement. Dictated by: Paulette Melendez MD, PhD on 09/12/2016 at 20:43 Approved by: Paulette Melendez MD, PhD on 09/12/2016 at 20:49 ECG 12 Lead NSR at 70 bpm Brief History 71 year old female with history of hypercholesterolemia and distant history of smoking presents with about 4-5 days of intermittent tingling on the left side of her neck and radiating down her left shoulder. She called her PCP's office today and as she was talking to the nurse on the phone she felt numbness on the lower left side of her face and around her lip and tongue. She was instructed to come to the ED. In the ED while going to the bathroom the nursing felt that patient's speech might be slurred although her says that her speech seems at baseline right now. She reports that the numbness and tingling in her face and neck seems almost resolved now but still feels some numbness of her tongue. She otherwise denies any other new neurologic symptoms and specifically denies any focal weakness. Hospital Course # Acute and intermittent episodes of numbness and tingling concerning for possible TIA vs CVA. Present on admission. - MRI brain without evidence of acute finding - Patient continues to report numbness of her tongue especially on the left side - ASA daily continued and started on Plavix on admission as well - HgA1C pending - Echo ordered but still pending # Significant carotid artery stenosis bilaterally, present on admission - Start Lipitor 20 hs - Discussed with neurology consult (Dr. Alfaro) who recommends transferring patient for consideration of further vascular surgery intervention as inpatient given ongoing symptoms # Chronic hypothyroidism - Continue with home dose Levothyroxine - TSH within normal # Arthritis, chronic. Stable. - Continue with supportive care - Continue with home pain meds # GERD, chronic. stable - Continue with PPI by day of discharge contacted patient's insurance ([employer]) who have facilitated patient's transfer to [facility] with vascular surgery planning to consult. Exam Vital Signs (Last) Date Time Temp Pulse Resp B/P Pulse Ox O2 Delivery O2 Flow Rate FiO2 09/13/16 17:49 36.8 96 20 156/90 97 Room Air Exam General: Alert, Oriented X3, Cooperative, No Acute Distress Head: Normal Eyes: PERRLA, EOMI, Scleral Anicteric Nose: Mucous Membr Moist/[place] Mouth: Mucous Membr Moist/[place] Neck: Supple Chest & Lungs: Chest Wall Normal, Clear to auscultation bilat Cardiovascular: Regular Rate/Rhythm Abdomen: Non-tender, Non-distended, Normoactive bowel tones, Soft Extremities: No cyanosis/clubbing/edema bilat Neurological: Grossly Neurologically Intact, Normal Speech, Strength Normal 07/18 ext. Ambulating without difficulty Test 09/12/16 13:25 09/12/16 14:58 09/13/16 05:30 Neutrophils (%) (Auto) 48.0% (40-74) Lymphocytes (%) (Auto) 25.1% (14-46) Monocytes (%) (Auto) 9.8% (4-12) Eosinophils (%) (Auto) 15.9% (0-5) Basophils (%) (Auto) 1.1% (0-3) Total Bilirubin 0.4mg/dL (0.0-1.2) Aspartate Amino Transf (AST/SGOT) 25U/L (0-50) Alanine Aminotransferase (ALT/SGPT) 8U/L (0-32) Alkaline Phosphatase 63U/L (25-165) Troponin T < 0.010ug/L (0.0-0.011) Total Protein 7.3g/dL (6.4-8.4) Albumin 4.5g/dL (3.4-5.0) Hold [place] Top Tube Received (Received) Urine Color Straw (YELLOW) Urine Appearance Clear (CLEAR,HAZY) Urine pH 5.0 (5.0-8.0) Urine Specific [place] 1.005 (1.003-1.035) Urine Protein Negativemg/dL (NEG,TRACE) Urine Glucose (UA) Negativemg/dL (NEGATIVE) Urine Ketones Negativemg/dL (NEGATIVE) Urine Occult Blood Negative (NEGATIVE) Urine Nitrite Negative (NEGATIVE) Urine Bilirubin Negative (NEGATIVE) Urine Urobilinogen Normalmg/dL (NORMAL) Urine Leukocyte Esterase Negative (NEGATIVE) Urine RBC 0-2/hpf (0-2) Urine WBC 0-5/hpf (0-5) Urine Epithelial Cells Few/hpf (NONE-MOD) Urine Crystals None seen (NONE SEEN) Urine Bacteria Few/hpf (NONE-FEW) Urine Hyaline Casts None/lpf (NONE) Urine Granular Casts None seen (NONE SEEN) Urine Waxy Casts None seen (NONE SEEN) Urine Red Blood Cell Casts None seen (NONE SEEN) Urine White Blood Cell Casts None seen (NONE SEEN) Urine Mucus None seen (None Seen) Urine Trichomonas None seen (NONE SEEN) Urine Yeast None (NONE SEEN) Urinalysis Comment None Urine Culture Reflexed Not indicated White Blood Count 7.8th/mm3 (3.8-10.1) Red Blood Count 4.59mil/mm3 (3.90-5.20) Hemoglobin 14.0g/dL (12.0-15.6) Hematocrit 41.2% (35.0-46.0) Mean Corpuscular Volume 89.8fL (81-100) Mean Corpuscular Hemoglobin 30.5pg (27.0-35.0) Mean Corpuscular Hemoglobin Concent 34.0% (32.0-37.0) Red Cell Distribution Width 12.5% (12.3-15.4) Platelet Count 312bil/L (150-400) Prothrombin Time 10.5sec (8.1-12.5) Prothromb Time International Ratio 0.98ratio Activated Partial Thromboplast Time 28.2sec (22.8-33.0) Sodium Level 143mEq/L (134-144) Potassium Level 4.2mEq/L (3.5-5.2) Chloride Level 107mEq/L (97-108) Carbon Dioxide Level 22mmol/L (18-29) Blood Urea Nitrogen 11mg/dL (8-27) Creatinine 0.64mg/dL (0.57-1.00) Estimat Glomerular Filtration Rate 131mL/min (>59) Glucose Level 106mg/dL (60-99) Calcium Level 9.9mg/dL (8.5-10.1) Magnesium Level 1.7mg/dL (1.6-2.6) Triglycerides Level 117mg/dL (0-149) Cholesterol Level 170mg/dL (100-199) LDL Cholesterol, Calculated 95.600mg/dL (0-99) VLDL Cholesterol 23.400mg/dL HDL Cholesterol 51mg/dL (>39) Cholesterol/HDL Ratio 3.33 (0.0-4.4) Discharge Medications Discharge Medications Acetaminophen (Acetaminophen) 500 Mg Tablet 500 MG PO TID (Reported) Aspirin (Aspirin) 81 Mg Tablet 81 MG PO TID (Reported) Calcium Carbonate/Vitamin D3 (Calcium 600 + Vit D 800 Tab) 600 Mg-800 Tablet 1 EACH PO DAILY (Reported) Calcium Polycarbophil (Calcium Polycarbophil) 625 Mg Tablet 625 MG PO BIDWM ( Reported) Cholecalciferol (Vitamin D3) (Vitamin D3) 1,000 Unit Tab.chew 2,000 UNIT PO QAM (Reported) Dorzolamide HCl/Timolol Maleat (Dorzolamide-Timolol Eye Drops) 10 Ml Drops 1 GTT BOTH_EYES BID (Reported) Estradiol (Estradiol) 0.5 Mg Tablet 0.125 MG PO QAM (Reported) Gabapentin (Gabapentin) 300 Mg Capsule 300 MG PO TID (Reported) Gemfibrozil (Gemfibrozil) 600 Mg Tablet 600 MG PO BIDWM (Reported) Ginkgo Biloba Extract (Ginkgo Biloba) 120 Mg Capsule 120 MG PO DAILY (Reported) Latanoprost (Latanoprost) 2.5 Ml Drops 1 GTT BOTH_EYES HS (Reported) Levothyroxine (Levothyroxine) 88 Mcg Tablet 88 MCG PO QAM (Reported) Loratadine (Claritin) 10 Mg Capsule 10 MG PO QAM (Reported) Multivits-Min/FA/Lycopene/Lut (Centrum Silver Tablet) 1 Each Tablet 1 EACH PO QAM (Reported) Naproxen Sodium (Aleve) 220 Mg Capsule 220 MG PO BIDWM (Reported) [place]-3/Dha/Epa/Fish Oil (Fish Oil 1,000 mg Softgel) 1 Each Capsule 1 EACH PO BID (Reported) Omeprazole (Omeprazole) 20 Mg Capsule.dr 20 MG PO QAM (Reported) Pravastatin (Pravastatin) 20 Mg Tablet 20 MG PO Q48H (Reported) Trazodone (Trazodone) 50 Mg Tablet 75 MG PO HS (Reported) Ubidecarenone (Coenzyme Q10) 100 Mg Tablet 100 MG PO DAILY (Reported) diphenhydrAMINE HCl (Benadryl) 25 Mg Capsule 25 MG PO QID (Reported) As needed Cyclobenzaprine (Cyclobenzaprine) 10 Mg Tablet 10 MG PO HS PRN PRN Spasm ( Reported) Fluticasone Propionate (Fluticasone Propionate) 50 Mcg/Actuation [employer].susp 1 SPRAY NS DAILY PRN PRN For Congestion (Reported) Loperamide (Loperamide) 2 Mg Tablet 2 MG PO Q4H PRN PRN For Diarrhea or Loose Stool (Reported) Oxycodone (Roxicodone) 5 Mg Tablet 2.5 MG PO HS PRN PRN For Pain (Reported) Followup Plan Disposition: Transfer to [facility] Time spent 40 min copies to: Zach Meyer MD, [place] September 13, 2016 18:20
--- NOTE | 2016-09-13 20:23 | NUR ---
Patient left via stretcher All belongings accounted for with daughter accompanying transfer. Report given to transportation team by Alberto Vieira.
== END 2016-09-13 19:25 | disposition short-term general hospital (02) ==
LOC: SED 12:40 → MPC 16:15
PROVIDERS: ADMIT Internal Medicine; ATTEND Internal Medicine
DX: R20.0 Anesthesia of skin (principal); R47.81 Slurred speech; R26.2 Difficulty in walking, not elsewhere classified; R29.810 Facial weakness; R51 Headache; R20.2 Paresthesia of skin; G45.9 Transient cerebral ischemic attack, unspecified; M48.02 Spinal stenosis, cervical region; I10 Essential (primary) hypertension; E03.9 Hypothyroidism, unspecified; M19.90 Unspecified osteoarthritis, unspecified site; K21.9 Gastro-esophageal reflux disease without esophagitis; E78.00 Pure hypercholesterolemia, unspecified; Z87.891 Personal history of nicotine dependence; Z79.82 Long term (current) use of aspirin
CPT/HCPCS: 36415; 70450; 70496; 70498; 70553; 71010; 72156; 80048; 80053; 80061; 81000; 82948; 83036; 83735; 84484; 85025; 85027; 85610; 85730; 92610; 93005; 96360; 99291; A9585; G0378; J1644; J7030; Q9967